=== PATIENT | female | born 1980 | race Caucasian/White ===

== ENCOUNTER 2017-06-21 15:45 | Inpatient (IN) | payer OTHER ==
[~2017-06-21] VITALS: Ht 157.5 cm; Wt 60.8 kg
[2017-06-21 16:01] VITALS: Ht 157.5 cm; Wt 60.8 kg
[2017-06-21 17:02] LABS: BASOPHIL % 0.1 % (0-2); PLATELET COUNT 380 x10^3mcL (130-400); RED CELL DISTRIBUTION WIDTH 11.8 % (11.5-14.5)
[2017-06-21 17:03] LABS: CALCIUM 10.2 mg/dL (8.5-10.1); CARBON DIOXIDE 26.7 mmol/L (21-32); CHLORIDE SERUM 103 mmol/L (98-107); CREATININE SERUM 0.6 mg/dL (0.6-1.0); GFR1 > 60 mL/min; GLUCOSE SERUM 128 mg/dL (74-106); POTASSIUM SERUM 3.4 mmol/L (3.5-5.1); SODIUM SERUM 139 mmol/L (136-145)
[2017-06-21 17:07] LABS: ALBUMIN 3.9 g/dL (3.4-5.0); ALKALINE PHOSPHATASE 84 U/L (46-116); ALT/SGPT 28 U/L (14-59); AST/SGOT 21 U/L (15-37); BILIRUBIN TOTAL 0.27 mg/dL (0.20-1.00); LIPASE 68 IU/L (73-393); TOTAL PROTEIN, SERUM 7.4 g/dL (6.4-8.2)
[2017-06-21 18:05] LABS: MAGNESIUM 1.9 mg/dL (1.8-2.4); PHOSPHOROUS 3.2 mg/dL (2.5-4.9)
[2017-06-21 18:16] LABS: T3 TOTAL 1.13 ng/mL
[2017-06-21 18:33] LABS: FREE T4 0.99 ng/dL (0.76-1.46); T4(THYROXINE) 8.6 ug/dL (4.7-13.3)
[2017-06-21 19:51] VITALS: BP 137/90
[2017-06-21 19:53] LABS: microscopic required? NO
[2017-06-21 20:04] LABS: urine erythrocyte NEGATIVE (NEGATIVE)
[2017-06-21 20:19] LABS: AMPHETAMINE QUAL UR POSITIVE (NEG <=1000)
[2017-06-22 06:07] VITALS: BP 120/80
[2017-06-22 10:36] LABS: BASOPHIL % 0.3 % (0-2); PLATELET COUNT 345 x10^3mcL (130-400)
[2017-06-22 12:55] LABS: CALCIUM 9.3 mg/dL (8.5-10.1); CARBON DIOXIDE 21.1 mmol/L (21-32); CHLORIDE SERUM 102 mmol/L (98-107); CREATININE SERUM 0.7 mg/dL (0.6-1.0); GFR1 > 60 mL/min; GLUCOSE SERUM 122 mg/dL (74-106); POTASSIUM SERUM 4.1 mmol/L (3.5-5.1); SODIUM SERUM 134 mmol/L (136-145)
[2017-06-22 13:00] VITALS: BP 120/58
[2017-06-22 16:38] VITALS: BP 91/50
[2017-06-22 20:25] VITALS: BP 96/49
[2017-06-23 05:35] VITALS: BP 114/6
[2017-06-23 06:50] LABS: BASOPHIL % 0.2 % (0-2); PLATELET COUNT 277 x10^3mcL (130-400); RED CELL DISTRIBUTION WIDTH 12.6 % (11.5-14.5)
[2017-06-23 07:06] LABS: CALCIUM 7.9 mg/dL (8.5-10.1); CARBON DIOXIDE 23.7 mmol/L (21-32); CHLORIDE SERUM 108 mmol/L (98-107); CREATININE SERUM 0.6 mg/dL (0.6-1.0); GFR1 > 60 mL/min; GLUCOSE SERUM 106 mg/dL (74-106); MAGNESIUM 1.8 mg/dL (1.8-2.4); PHOSPHOROUS 3.6 mg/dL (2.5-4.9); POTASSIUM SERUM 3.8 mmol/L (3.5-5.1); SODIUM SERUM 140 mmol/L (136-145)
[2017-06-23 07:40] VITALS: BP 102/62
[2017-06-23 08:54] VITALS: BP 107/64
[2017-06-23 09:01] VITALS: BP 102/62
[2017-06-23] MEDS ORDERED: TYLENOL WITH CO1 TA2 PO (11:03)
[2017-06-23] MEDS ORDERED: FLA250 PO (13:33)
[2017-06-23] MEDS ORDERED: LAC PO (13:33)
[2017-06-23] MEDS ORDERED: LEVAQUIN750 MG PO (13:33)
== END 2017-06-23 12:57 | disposition home or self-care (01) | DRG 263 ==
LOC: ED 15:45 → DU 17:10 → MU 06-22 12:34
PROVIDERS: Emergency Medicine; Family Medicine; Surgery
PROC: 0FT44ZZ Resection of Gallbladder, Percutaneous Endoscopic Approach (ICD-10-PCS; principal; 2017-06-22 11:00)
DX: K80.00 Calculus of gallbladder with acute cholecystitis without obstruction (principal); F15.10 Other stimulant abuse, uncomplicated; E78.5 Hyperlipidemia, unspecified; E87.6 Hypokalemia; F17.210 Nicotine dependence, cigarettes, uncomplicated; Z53.29 Procedure and treatment not carried out because of patient's decision for other reasons; Z98.51 Tubal ligation status; Z87.11 Personal history of peptic ulcer disease; Z56.0 Unemployment, unspecified
CPT/HCPCS: 78226; 83880; 84439; 94150; A9537; J0696; J1885; J1956; J2175; J2250; J2270; J2405; J2765; J3010; J3490; J7030; Q0092